=== PATIENT | female | born 1965 | race Caucasian/White ===

== ENCOUNTER 2017-05-08 17:02 | Emergency (ER) | payer MEDICAID, OTHER ==
--- NOTE | 2017-05-08 17:12 | CPEKG ---
Heart Rate: 88 RR Interval: 682 P-R Interval: 140 QRSD Interval: 90 QT Interval: 348 QTC Interval: 421 P [place]: 46 QRS [place]: -13 T Wave [place]: 39 EKG Severity - NORMAL ECG - EKG Impression: SINUS RHYTHM Electronically Signed By: Rome Sousa 09-May-2017 19:32:04
[2017-05-08 17:39] LABS: % IMMATURE GRANULYOCYTES 0.9 % (0.0-1.1); ABSOLUTE IMMATURE GRANULOCYTES 0.11 10^3/uL (0.00-0.10); ADD DIFF? NO; ADD MORPH? NO; ADD SCAN? NO; ATYPICAL LYMPHOCYTE FLAG 20 (0-99); FRAGMENT RBC FLAG 0 (0-99); HEMATOCRIT 39.1 % (38.0-47.0); HEMOGLOBIN 12.4 g/dL (12.6-16.3); LEFT SHIFT FLG 0 (0-99); LIPEMIA HEMOLYSIS FLAG 80 (0-99); MEAN CELL HEMOGLOBIN 25.3 pg (27.9-34.1); MEAN CELL HEMOGLOBIN CONCENTR. 31.7 g/dL (32.4-36.7); MEAN CELL VOLUME 79.6 fL (81.5-99.8); MEAN PLATELET VOLUME 8.8 fL (8.7-11.7); PLATELET CLUMPS FLAG 0 (0-99); PLATELET COUNT 459 10^3/uL (150-400); RED BLOOD CELL COUNT 4.91 10^6/uL (4.18-5.33); RED CELL DISTRIBUTION WIDTH 19.4 % (11.5-15.2)
--- NOTE | 2017-05-08 17:46 | EDPHY ---
HPI/HX/ROS/PE/MDM Narrative: CHIEF COMPLAINT: Chest pain. HPI: This patient is a 51 year old female complaining of stabbing chest pain onset around 2:00, three and a half hours ago. The pain feels stabbing on the left side below her ribs, radiating around to her back. She feels as if the left side of her chest is being crushed. She does not have increased pain with inspiration, but states is is difficult to catch her breath. She denies any recent trauma, and has never had pain like this before. She has history of two prior DVTs, but it not currently anticoagulated. She has significant family cardiac history, as her mother of a heart attack at age 45. REVIEW OF SYSTEMS: Aside from elements discussed in the HPI, a comprehensive 10-point review of systems was reviewed and is negative. 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 Gastric bypass. SOCIAL HISTORY: Daughter at bedside. Lives in [place]. . PHYSICAL EXAM: General:Patient is alert, in no acute distress. ENT:Eyes are normal to inspection. ENT inspection normal. Neck: Normal inspection. Full range of motion. Respiratory:No respiratory distress. Breath sounds normal bilaterally. Cardiovascular: Regular rate and rhythm. Strong peripheral pulses. Normal cap refill. Abdomen:The abdomen is nontender to palpation. There are no peritoneal signs. There are normal bowel sounds. Back: Normal to inspection. No tenderness to palpation. Skin: Normal color. No rash. Warm and dry. Extremities: Normal appearance. Full range of motion. Neuro: Oriented x3. Normal motor function. Normal sensory function. Portions of this note were transcribed by an ED scribe. I personally performed the history, physical exam, and medical decision making; and confirm the accuracy of the information in the transcribed note. ED Course: 51 year old female presents with stabbing chest pains. Plan for labs including CBC, BMP, Troponin, and D-Dimer. Plan for CTA. The 12 lead EKG was interpreted by myself. See hard copy and/or "tracemaster" electronic copy for interpretation. 18:[address] Trotter, radiologist. CTA negative for PE. Plan to discharge home in good condition. Follow up and return precautions discussed. The patient is comfortable with this plan. MDM: This patient presents with left-sided pleuritic chest pain in the setting of previous DVT and family history of PE. The patient's troponin and ECG are normal, as is her d-dimer. I explained this to her but she is adamant that something is wrong and very concerned about PE despite d-dimer being negative, so we agreed to perform a CTA, which is thankfully negative. The patient asked for narcotic pain medication but review of her chart shows history of extensive substance abuse so this was declined, especially since no clear etiology of pain is identified. I see no signs of PE, PTx, PNA, TAD or ACS. - Data Points Imaging Results: Imaging Impressions Chest/Thorax CTA 05/08/17 17:46 Impression: 1. No evidence of thrombopulmonary embolic disease. 2. Mild airways disease and minimal posterior dependent atelectasis. 3. No acute process. Findings discussed with Emergency Department physician, Jose He MD at 05/08/2017 18:57. Laboratory Results: Laboratory Results 05/08/17 17:31 05/08/17 17:31 05/08/17 05/08/17 05/08/17 17:31 17:31 17:31 WBC 11.98 10^3/uL H 10^3/uL (3.80-9.50) RBC 4.91 10^6/uL 10^6/uL (4.18-5.33) Hgb 12.4 g/dL L g/dL (12.6-16.3) Hct 39.1 % % (38.0-47.0) MCV 79.6 fL L fL (81.5-99.8) MCH 25.3 pg L pg (27.9-34.1) MCHC 31.7 g/dL L g/dL (32.4-36.7) RDW 19.4 % H % (11.5-15.2) Plt Count 459 10^3/uL H 10^3/uL (150-400) MPV 8.8 fL fL (8.7-11.7) Neut % (Auto) 62.9 % % (39.3-74.2) Lymph % (Auto) 28.1 % % (15.0-45.0) [place] % (Auto) 5.8 % % (4.5-13.0) Eos % (Auto) 1.8 % % (0.6-7.6) Baso % (Auto) 0.5 % % (0.3-1.7) Nucleat RBC Rel Count 0.0 % % (0.0-0.2) Absolute Neuts (auto) 7.52 10^3/uL H 10^3/uL (1.70-6.50) Absolute Lymphs (auto) 3.37 10^3/uL H 10^3/uL (1.00-3.00) Absolute Monos (auto) 0.70 10^3/uL 10^3/uL (0.30-0.80) Absolute Eos (auto) 0.22 10^3/uL 10^3/uL (0.03-0.40) Absolute Basos (auto) 0.06 10^3/uL 10^3/uL (0.02-0.10) Absolute Nucleated RBC 0.00 10^3/uL 10^3/uL (0-0.01) Immature Gran % 0.9 % % (0.0-1.1) Immature Gran # 0.11 10^3/uL H 10^3/uL (0.00-0.10) D-Dimer < 0.27 ug/mLFEU ug/mLFEU (0.00-0.50) Sodium 135 mEq/L mEq/L (134-144) Potassium 4.5 mEq/L mEq/L (3.5-5.2) Chloride 104 mEq/L mEq/L (97-110) Carbon Dioxide 19 mEq/l L mEq/l (22-31) Anion Gap 12 mEq/L mEq/L (8-16) BUN 7 mg/dL mg/dL (7-23) Creatinine 1.0 mg/dL mg/dL (0.6-1.0) Estimated GFR 59 Glucose 83 mg/dL mg/dL (70-100) Calcium 8.9 mg/dL mg/dL (8.5-10.4) Troponin I < 0.012 ng/mL ng/mL (0-0.034) Medications Given: Discontinued Medications Hydromorphone HCl (Dilaudid) 0.5 mg IVP EDNOW ONE Stop: 05/08/17 17:49 Last Admin: 05/08/17 18:02 Dose: 0.5 mg General Time Seen by Provider: 05/08/17 17:22 Initial Vital Signs: Initial Vital Signs Temperature (C) 36.7 C 05/08/17 17:05 Heart Rate 107 H 05/08/17 17:05 Respiratory Rate 20 05/08/17 17:05 Blood Pressure 111/87 H 05/08/17 17:05 O2 Sat (%) 95 05/08/17 17:05 O2 Delivery Mode Room Air Allergies/Adverse Reactions: codeine [Codeine] Allergy (Mild, Verified 08/14/16 22:02) Abdominal Cramping lorazepam [From Ativan] Allergy (Mild, Verified 08/14/16 22:02) metoclopramide HCl [From Reglan] Allergy (Mild, Verified 08/14/16 22:02) morphine [Morphine] Allergy (Mild, Verified 08/14/16 22:02) Abdominal Cramping ondansetron HCl [From Zofran] Allergy (Mild, Verified 08/14/16 22:02) Hives sumatriptan [From Imitrex] Allergy (Mild, Verified 08/14/16 22:02) sumatriptan succinate [From Imitrex] Allergy (Mild, Verified 08/14/16 22:02) zolmitriptan [From Zomig] Allergy (Mild, Verified 08/14/16 22:02) zolpidem tartrate [From Ambien] Allergy (Mild, Verified 08/14/16 22:02) Home Medications: Medication Instructions Recorded Acetaminophen [Tylenol ES 500 mg 1,000 mg PO TID 08/21/16 (*)] Cholecalciferol Vit D3 [Vitamin D3 2,000 units PO DAILY 08/21/16 2000 units tab (OTC)] Cyanocobalamin [Vitamin B12 1,000 mcg IM Q30D 08/21/16 1000MCG/ML (*)] Ferrous Sulfate [Ferrous Sulf 325 325 mg PO DAILY 08/21/16 MG (*)] Gabapentin [Neurontin 300 MG (*)] 900 mg PO TID 08/21/16 Herbals/Supplements -Info Only 1 ea PO DAILY 08/21/16 Methenamine Nabil [Hiprex 1 gm (*)] 0.5 gm PO BID 08/21/16 risperiDONE [Risperdal] 2 mg PO HS 08/21/16 traMADol [Ultram 50 mg (*)] 50 mg PO TID 08/21/16 traZODone [traZODONE 100MG (*)] 100 mg PO HS 08/21/16 Pantoprazole Sodium [Protonix 40mg 40 mg PO DAILY #0 tab 08/24/16 (*)] Promethazine HCl [Phenergan 25mg 25 mg PO TID #0 tab 08/24/16 (*)] risperiDONE [Risperdal] 2 mg PO HS #0 tab 08/24/16 Departure - Departure Disposition: Home, Routine, Self-Care Clinical Impression: Chest wall pain Condition: Good Instructions: Chest Pain (ED), Chest Wall Pain (ED) Additional Instructions: Follow-up with your primary doctor within 72 hours for symptoms unresolved. Return to the Emergency Department for fever, chest pain, shortness of breath, increasing pain or other worsening of condition. Referrals: Noelle Guerrero MD [Medical Doctor] - As per Instructions Report Scribed for: Jose He Report Scribed by: Nilda Cardoza Date of Report: 05/08/17 Time of Report: 21:53
[2017-05-08] MEDS ORDERED: HYDROmorphONE/DILAUDID 1 MG/ML SYR IVP ONE (17:48)
[2017-05-08 17:54] LABS: ANION GAP 12 mEq/L (8-16); CALCIUM 8.9 mg/dL (8.5-10.4); CARBON DIOXIDE 19 mEq/l (22-31); CHLORIDE 104 mEq/L (97-110); GLOMERULAR FILTRATION RATE 59; GLUCOSE 83 mg/dL (70-100); POTASSIUM 4.5 mEq/L (3.5-5.2); SODIUM 135 mEq/L (134-144)
[2017-05-08 18:25] LABS: TROPONIN I < 0.012 ng/mL (0-0.034)
[2017-05-08] MEDS ORDERED: IOPAMIDOL (ISOVUE 370) 100 ML BTL IV ONE (18:30)
[2017-05-08 19:14] VITALS: BP 137/84; PULSE 88; RESP 18; TEMP 98.4; O2SAT 93
== END 2017-05-08 19:14 | disposition home or self-care (01) ==
DX: R07.89 Other chest pain (principal)
CPT/HCPCS: 96374; J1170; Q9967

== ENCOUNTER 2017-05-09 15:31 | Emergency (ER) | payer MEDICAID ==
[2017-05-09 15:37] VITALS: RESP 16; O2SAT 96
--- NOTE | 2017-05-09 15:50 | CPEKG ---
Heart Rate: 93 RR Interval: 645 P-R Interval: 132 QRSD Interval: 88 QT Interval: 324 QTC Interval: 403 P [place]: 40 QRS [place]: -1 T Wave [place]: 38 EKG Severity - NORMAL ECG - EKG Impression: SINUS RHYTHM Electronically Signed By: Rome Sousa 09-May-2017 19:31:39
--- NOTE | 2017-05-09 16:05 | EDPHY ---
H & P Time Seen by Provider: 05/09/17 16:01 HPI/ROS: Chief complaint. Chest pain HPI. 51-year-old female presents emergency department with left-sided chest pain that began yesterday afternoon around 2. She describes as crushing and stabbing. It is not worse with breathing, exertion, position, eating. No fever cough. Some tenderness in the upper abdomen. She has chronic nausea that is unchanged. No vomiting or diarrhea. She was seen last evening in the emergency department for the same and had a EKG, CTA for PE and normal workup. ROS Constitutional. no fever/chills, no weakness Eyes. no problems with vision ENT. no sore throat, no nasal drainage Cardiovascular. Chest pain Respiratory. no shortness of breath, no cough Abdominal. Chronic nausea . no problems urinating MS. no calf pain/swelling, no neck/back pain, no joint pain Skin. no rash Lymph. no swollen glands Neuro. no headache, no dizziness, no difficulty walking or with speech Past Medical/Surgical History: Past history hysterectomy, cholecystectomy, Crohn's disease, multiple abdominal surgeries, gastric bypass, neuropathy, appendectomy, and this dissection, migraines, left foot operation Social History: , daily smoker, no alcohol Smoking Status: Current every day smoker Physical Exam: General Appearance: Alert well-developed distress vital signs stable. Initial heart rate 104 Eyes: Pupils equal and round no pallor or injection. ENT, Mouth: Mucous membranes are moist. Respiratory: There are no retractions, lungs are clear to auscultation. Cardiovascular: Regular rate and rhythm. Gastrointestinal: Abdomen is soft and nontender, no masses, bowel sounds normal. Neurological: Awake and alert, sensory and motor exams grossly normal. Skin: Warm and dry, no rashes. Musculoskeletal: Neck is supple nontender. Extremities symmetrical, full range of motion. Psychiatric: Patient is oriented X 3, there is no agitation. Constitutional: Initial Vital Signs Temperature (C) 36.8 C 05/09/17 15:35 Heart Rate 104 H 05/09/17 15:35 Respiratory Rate 16 05/09/17 15:35 Blood Pressure 119/82 H 05/09/17 15:35 O2 Sat (%) 96 05/09/17 15:35 O2 Delivery Mode Room Air Allergies/Adverse Reactions: codeine [Codeine] Allergy (Mild, Verified 08/14/16 22:02) Abdominal Cramping lorazepam [From Ativan] Allergy (Mild, Verified 08/14/16 22:02) metoclopramide HCl [From Reglan] Allergy (Mild, Verified 08/14/16 22:02) morphine [Morphine] Allergy (Mild, Verified 08/14/16 22:02) Abdominal Cramping ondansetron HCl [From Zofran] Allergy (Mild, Verified 08/14/16 22:02) Hives sumatriptan [From Imitrex] Allergy (Mild, Verified 08/14/16 22:02) sumatriptan succinate [From Imitrex] Allergy (Mild, Verified 08/14/16 22:02) zolmitriptan [From Zomig] Allergy (Mild, Verified 08/14/16 22:02) zolpidem tartrate [From Ambien] Allergy (Mild, Verified 08/14/16 22:02) Home Medications: Medication Instructions Recorded Acetaminophen [Tylenol ES 500 mg 1,000 mg PO TID 08/21/16 (*)] Cholecalciferol Vit D3 [Vitamin D3 2,000 units PO DAILY 08/21/16 2000 units tab (OTC)] Cyanocobalamin [Vitamin B12 1,000 mcg IM Q30D 08/21/16 1000MCG/ML (*)] Ferrous Sulfate [Ferrous Sulf 325 325 mg PO DAILY 08/21/16 MG (*)] Gabapentin [Neurontin 300 MG (*)] 900 mg PO TID 08/21/16 Herbals/Supplements -Info Only 1 ea PO DAILY 08/21/16 Methenamine Nabil [Hiprex 1 gm (*)] 0.5 gm PO BID 08/21/16 risperiDONE [Risperdal] 2 mg PO HS 08/21/16 traMADol [Ultram 50 mg (*)] 50 mg PO TID 08/21/16 traZODone [traZODONE 100MG (*)] 100 mg PO HS 08/21/16 Pantoprazole Sodium [Protonix 40mg 40 mg PO DAILY #0 tab 08/24/16 (*)] Promethazine HCl [Phenergan 25mg 25 mg PO TID #0 tab 08/24/16 (*)] risperiDONE [Risperdal] 2 mg PO HS #0 tab 08/24/16 Hydrocodone/APAP 5/325 [[place] 1 each PO Q4-6PRN PRN #8 tab 05/09/17 5/325 (*)] Medical Decision Making - Diagnostics EKG Interpretation: EKG interpreted by me shows normal sinus rhythm with normal interval. There is left axis deviation. QRS is normal there is no significant ST elevation or depression. No arrhythmia. The rate is 93 Imaging Results: Imaging Impressions Chest X-Ray 05/09/17 16:17 Impression: Stable bronchitis/airways disease. CT from last night of her chest is reviewed by me One-view chest x-ray reviewed by me and interpretation is normal Procedures: IV normal saline. Dilaudid 0.5 mg IV. ED Course/Re-evaluation: Re-evaluation 6:25 p.m.--patient is stable. Patient and I discussed imaging lab EKG findings. We discussed treatment plan including criteria for return importance of follow-up and further evaluation. She expresses understanding and agreement Differential Diagnosis: I have considered pulmonary embolus however the patient had a normal D-dimer as well as normal chest CT last night. I have considered acute coronary syndrome and the patient has a normal EKG and negative troponin after more than 24 hours of discomfort. This could be musculoskeletal - Data Points Laboratory Results: Laboratory Results 05/09/17 17:10 05/09/17 17:10 05/09/17 05/09/17 17:10 17:10 WBC 12.12 10^3/uL H 10^3/uL (3.80-9.50) RBC 4.39 10^6/uL 10^6/uL (4.18-5.33) Hgb 10.9 g/dL L g/dL (12.6-16.3) Hct 34.7 % L % (38.0-47.0) MCV 79.0 fL L fL (81.5-99.8) MCH 24.8 pg L pg (27.9-34.1) MCHC 31.4 g/dL L g/dL (32.4-36.7) RDW 18.9 % H % (11.5-15.2) Plt Count 415 10^3/uL H 10^3/uL (150-400) MPV 9.1 fL fL (8.7-11.7) Neut % (Auto) 58.8 % % (39.3-74.2) Lymph % (Auto) 30.2 % % (15.0-45.0) [place] % (Auto) 6.6 % % (4.5-13.0) Eos % (Auto) 2.8 % % (0.6-7.6) Baso % (Auto) 0.5 % % (0.3-1.7) Nucleat RBC Rel Count 0.0 % % (0.0-0.2) Absolute Neuts (auto) 7.13 10^3/uL H 10^3/uL (1.70-6.50) Absolute Lymphs (auto) 3.66 10^3/uL H 10^3/uL (1.00-3.00) Absolute Monos (auto) 0.80 10^3/uL 10^3/uL (0.30-0.80) Absolute Eos (auto) 0.34 10^3/uL 10^3/uL (0.03-0.40) Absolute Basos (auto) 0.06 10^3/uL 10^3/uL (0.02-0.10) Absolute Nucleated RBC 0.00 10^3/uL 10^3/uL (0-0.01) Immature Gran % 1.1 % % (0.0-1.1) Immature Gran # 0.13 10^3/uL H 10^3/uL (0.00-0.10) Sodium 133 mEq/L L mEq/L (134-144) Potassium 4.3 mEq/L mEq/L (3.5-5.2) Chloride 105 mEq/L mEq/L (97-110) Carbon Dioxide 22 mEq/l mEq/l (22-31) Anion Gap 6 mEq/L L mEq/L (8-16) BUN 3 mg/dL L mg/dL (7-23) Creatinine 0.6 mg/dL mg/dL (0.6-1.0) Estimated GFR > 60 Glucose 77 mg/dL mg/dL (70-100) Calcium 8.3 mg/dL L mg/dL (8.5-10.4) Total Bilirubin 0.4 mg/dL mg/dL (0.1-1.4) Conjugated Bilirubin 0.2 mg/dL mg/dL (0.0-0.5) Unconjugated Bilirubin 0.2 mg/dL mg/dL (0.0-1.1) AST 17 IU/L IU/L (14-46) ALT 20 IU/L IU/L (9-52) Alkaline Phosphatase 104 IU/L IU/L (38-126) Troponin I < 0.012 ng/mL ng/mL (0-0.034) Total Protein 5.9 g/dL L g/dL (6.3-8.2) Albumin 3.0 g/dL L g/dL (3.5-5.0) Lipase 31.0 IU/L IU/L (23-300) Medications Given: Discontinued Medications Sodium Chloride (Ns) 1,000 mls @ 0 mls/hr IV ONCE ONE; Wide Open PRN Reason: Protocol Stop: 05/09/17 16:18 Last Admin: 05/09/17 17:11 Dose: 1,000 mls Departure - Departure Disposition: Home, Routine, Self-Care Clinical Impression: Chest pain Qualifiers: Chest pain type: unspecified Qualified Code(s): R07.9 - Chest pain, unspecified Condition: Good Instructions: Chest Pain (ED) Additional Instructions: Ibuprofen 600 mg every 6 hours. Heat to chest wall. Hydrocodone for discomfort. Return for worsening symptoms. Re-evaluation by your regular physician in the next 2-3 days. Referrals: CLAUDIA MARTINEZ [Primary Care Provider] - 1-2 days without fail Stand Alone Forms: Work Excuse Prescriptions: Hydrocodone/APAP 5/325 [[place] 5/325 (*)] 1 each PO Q4-6PRN PRN #8 tab PRN Reason: Pain, Moderate
[2017-05-09] MEDS ORDERED: NS 1,000 ML IV ONE (16:17)
[2017-05-09] MEDS ORDERED: HYDROmorphONE/DILAUDID 1 MG/ML SYR IVP PRN (16:17)
[2017-05-09 17:29] LABS: % IMMATURE GRANULYOCYTES 1.1 % (0.0-1.1); ABSOLUTE IMMATURE GRANULOCYTES 0.13 10^3/uL (0.00-0.10); ADD DIFF? NO; ADD MORPH? NO; ADD SCAN? NO; ATYPICAL LYMPHOCYTE FLAG 0 (0-99); FRAGMENT RBC FLAG 0 (0-99); HEMATOCRIT 34.7 % (38.0-47.0); HEMOGLOBIN 10.9 g/dL (12.6-16.3); LEFT SHIFT FLG 0 (0-99); LIPEMIA HEMOLYSIS FLAG 80 (0-99); MEAN CELL HEMOGLOBIN 24.8 pg (27.9-34.1); MEAN CELL HEMOGLOBIN CONCENTR. 31.4 g/dL (32.4-36.7); MEAN PLATELET VOLUME 9.1 fL (8.7-11.7); PLATELET CLUMPS FLAG 0 (0-99); PLATELET COUNT 415 10^3/uL (150-400); RED BLOOD CELL COUNT 4.39 10^6/uL (4.18-5.33); RED CELL DISTRIBUTION WIDTH 18.9 % (11.5-15.2)
[2017-05-09 17:33] LABS: ALANINE AMINOTRANSFERASE 20 IU/L (9-52); ALKALINE PHOSPHATASE 104 IU/L (38-126); ANION GAP 6 mEq/L (8-16); ASPARTATE AMINOTRANSFERASE 17 IU/L (14-46); BILIRUBIN,TOTAL 0.4 mg/dL (0.1-1.4); BILIRUBIN-CONJUGATED 0.2 mg/dL (0.0-0.5); BILIRUBIN-UNCONJUGATED 0.2 mg/dL (0.0-1.1); CALCIUM 8.3 mg/dL (8.5-10.4); CARBON DIOXIDE 22 mEq/l (22-31); CHLORIDE 105 mEq/L (97-110); CREATININE 0.6 mg/dL (0.6-1.0); GLOMERULAR FILTRATION RATE > 60; GLUCOSE 77 mg/dL (70-100); POTASSIUM 4.3 mEq/L (3.5-5.2); SODIUM 133 mEq/L (134-144); TOTAL PROTEIN 5.9 g/dL (6.3-8.2)
[2017-05-09 17:44] LABS: TROPONIN I < 0.012 ng/mL (0-0.034)
[2017-05-09 19:17] VITALS: BP 110/76; PULSE 82; TEMP 99
== END 2017-05-09 18:45 | disposition home or self-care (01) ==
DX: R07.9 Chest pain, unspecified (principal); F17.200 Nicotine dependence, unspecified, uncomplicated; E86.9 Volume depletion, unspecified
CPT/HCPCS: 96374; J1170

== ENCOUNTER 2017-05-14 19:12 | Inpatient (IN) | payer MEDICAID ==
--- NOTE | 2017-05-14 19:33 | EDPHY ---
H & P Stated Complaint: CP Time Seen by Provider: 05/14/17 19:31 - Personal History LMP (Females 10-55): Hysterectomy Current Tetanus/Diphtheria Vaccine: Yes Current Tetanus Diphtheria and Acellular Pertussis (TDAP): Yes Tetanus Vaccine Date: 2011 - Medical/Surgical History Hx Asthma: No Hx Chronic Respiratory Disease: No Hx Diabetes: No Hx Cardiac Disease: No Hx Renal Disease: No Hx Cirrhosis: No Hx Alcoholism: No Hx HIV/AIDS: No Hx Splenectomy or Spleen Trauma: No Other PMH: hysterectomy, cholecystectomy, chrohns disease, multiple abd surgeries, gastric bypass, neuropathy, right foot drop. appendectomy, intussuception, migraines, L foot operation, Tonsillectomy, bipolar, depression , bowel obstruction - Social History Smoking Status: Current every day smoker Constitutional: Initial Vital Signs Temperature (C) 36.8 C 05/14/17 19:15 Heart Rate 112 H 05/14/17 19:15 Respiratory Rate 24 H 05/14/17 19:15 Blood Pressure 128/73 H 05/14/17 19:15 O2 Sat (%) 96 05/14/17 19:15 O2 Delivery Mode Room Air Allergies/Adverse Reactions: codeine [Codeine] Allergy (Mild, Verified 05/14/17 19:14) Abdominal Cramping lorazepam [From Ativan] Allergy (Mild, Verified 05/14/17 19:14) metoclopramide HCl [From Reglan] Allergy (Mild, Verified 05/14/17 19:14) morphine [Morphine] Allergy (Mild, Verified 05/14/17 19:14) Abdominal Cramping ondansetron HCl [From Zofran] Allergy (Mild, Verified 05/14/17 19:14) Hives sumatriptan [From Imitrex] Allergy (Mild, Verified 05/14/17 19:14) sumatriptan succinate [From Imitrex] Allergy (Mild, Verified 05/14/17 19:14) zolmitriptan [From Zomig] Allergy (Mild, Verified 05/14/17 19:14) zolpidem tartrate [From Ambien] Allergy (Mild, Verified 05/14/17 19:14) Home Medications: Medication Instructions Recorded Acetaminophen [Tylenol ES 500 mg 1,000 mg PO TID 08/21/16 (*)] Cholecalciferol Vit D3 [Vitamin D3 2,000 units PO DAILY 08/21/16 2000 units tab (OTC)] Cyanocobalamin [Vitamin B12 1,000 mcg IM Q30D 08/21/16 1000MCG/ML (*)] Ferrous Sulfate [Ferrous Sulf 325 325 mg PO DAILY 08/21/16 MG (*)] Gabapentin [Neurontin 300 MG (*)] 900 mg PO TID 08/21/16 Herbals/Supplements -Info Only 1 ea PO DAILY 08/21/16 Methenamine Nabil [Hiprex 1 gm (*)] 0.5 gm PO BID 08/21/16 risperiDONE [Risperdal] 2 mg PO HS 08/21/16 traMADol [Ultram 50 mg (*)] 50 mg PO TID 08/21/16 traZODone [traZODONE 100MG (*)] 100 mg PO HS 08/21/16 Pantoprazole Sodium [Protonix 40mg 40 mg PO DAILY #0 tab 08/24/16 (*)] Promethazine HCl [Phenergan 25mg 25 mg PO TID #0 tab 08/24/16 (*)] risperiDONE [Risperdal] 2 mg PO HS #0 tab 08/24/16 Hydrocodone/APAP 5/325 [[place] 1 each PO Q4-6PRN PRN #8 tab 05/09/17 5/325 (*)] Dilaudid 05/14/17 Medical Decision Making - Diagnostics Imaging: Discussed imaging studies w/ financial services technician Radiologist, I viewed and interpreted images myself ED Course/Re-evaluation: CHIEF COMPLAINT: Abdominal and chest pain HISTORY OF PRESENT ILLNESS: The patient is a 51 y/o female returning for the 3rd time this week complaining of recurrent chest and abdominal pain. She had extensive cardiac work up for these symptoms including EKG, labs, and chest CTA. Her pain is located below her sternum along her epigastrium, in her left midaxillary region, and radiates to her back. It oscillates between "dull and tolerable" to feeling "like a hot dagger going through me." She feels like she can't catch her breath and states the pain does not change with position. She has been able to drink fluids, but has difficulty eating due to pain. She has been taking oral Dilaudid for pain, which is prescribed by her pain clinic doctor. REVIEW OF SYSTEMS: A 10 point review of systems was performed and is negative with the exception of the elements mentioned in the history of present illness. PHYSICAL EXAM: HR, BP, O2 Sat, RR. Temp noted General Appearance: Alert, well hydrated, appropriate, and non-toxic appearing. Head: Atraumatic without scalp tenderness or obvious injury Eyes: Pupils equal, round, reactive to light and accommodation, EOMI, no trauma , no injection. Nose: Atraumatic, no rhinorrhea, clear. Throat: Mucus membranes moist. Neck: Supple, nontender, no lymphadenopathy. Respiratory: No retractions, no distress, no wheezes, and no accessory muscle use. Lungs are clear to auscultation bilaterally. Cardiovascular: Regular rate and rhythm, no murmurs, rubs, or gallops. Good capillary refill all extremities. Gastrointestinal: Abdomen is soft, epigastric tenderness, non-distended, no masses, no rebound, no guarding, no peritoneal signs. Musculoskeletal: Normal active ROM of all extremities, atraumatic. Neurological: Alert, appropriate, and interactive. Nonfocal neuro exam. Skin: No rashes, good turgor, no nodules on palpation. Past medical history: Crohn's disease, migraines, depression Past surgical history: Gastric bypass in 2002, multiple abdominal surgeries, hysterectomy, cholecystectomy Family history: noncontributory Social history: [facility]: [facility] DIAGNOSTICS/PROCEDURES/CRITICAL CARE TIME: The 12 lead EKG was interpreted by myself. Sinus mechanism. Slightly tachycardic. Same as previous EKG this week. See hard copy and/or "tracemaster" electronic copy for interpretation. Abdominal CT: negative for acute process DIFFERENTIAL DIAGNOSIS: The differential diagnosis for the patient's abdominal pain included but was not limited to complication from gastric surgery , ovarian cyst, pelvic inflammatory disease, ovarian torsion, urinary tract infection, ectopic , cholecystitis, and appendicitis. MEDICAL DECISION MAKING: This is a 51 y/o female who presents with recurrent chest and epigastric abdominal pain. She has epigastric tenderness on exam and is mildly tachycardic. As her chest pain has been thoroughly worked up, plan to complete abdominal pain work up with IV, labs, UA, and abdominal CT. WBC is elevated. CT shows nothing acute. I discussed these findings with the patient and offered admission, which she agreed to. 2110: Spoke with hospitalist service. Dr. Hampton accepts admission. - Data Points Laboratory Results: Laboratory Results 05/14/17 19:41 05/14/17 19:41 05/14/17 05/14/17 19:41 19:41 WBC 12.87 10^3/uL H 10^3/uL (3.80-9.50) RBC 4.67 10^6/uL 10^6/uL (4.18-5.33) Hgb 11.7 g/dL L g/dL (12.6-16.3) Hct 37.1 % L % (38.0-47.0) MCV 79.4 fL L fL (81.5-99.8) MCH 25.1 pg L pg (27.9-34.1) MCHC 31.5 g/dL L g/dL (32.4-36.7) RDW 18.6 % H % (11.5-15.2) Plt Count 429 10^3/uL H 10^3/uL (150-400) MPV 9.2 fL fL (8.7-11.7) Neut % (Auto) 66.1 % % (39.3-74.2) Lymph % (Auto) 24.2 % % (15.0-45.0) [place] % (Auto) 5.7 % % (4.5-13.0) Eos % (Auto) 2.3 % % (0.6-7.6) Baso % (Auto) 0.5 % % (0.3-1.7) Nucleat RBC Rel Count 0.0 % % (0.0-0.2) Absolute Neuts (auto) 8.51 10^3/uL H 10^3/uL (1.70-6.50) Absolute Lymphs (auto) 3.12 10^3/uL H 10^3/uL (1.00-3.00) Absolute Monos (auto) 0.74 10^3/uL 10^3/uL (0.30-0.80) Absolute Eos (auto) 0.29 10^3/uL 10^3/uL (0.03-0.40) Absolute Basos (auto) 0.06 10^3/uL 10^3/uL (0.02-0.10) Absolute Nucleated RBC 0.00 10^3/uL 10^3/uL (0-0.01) Immature Gran % 1.2 % H % (0.0-1.1) Immature Gran # 0.15 10^3/uL H 10^3/uL (0.00-0.10) Sodium 133 mEq/L L mEq/L (134-144) Potassium 3.9 mEq/L mEq/L (3.5-5.2) Chloride 105 mEq/L mEq/L (97-110) Carbon Dioxide 19 mEq/l L mEq/l (22-31) Anion Gap 9 mEq/L mEq/L (8-16) BUN 7 mg/dL mg/dL (7-23) Creatinine 0.8 mg/dL mg/dL (0.6-1.0) Estimated GFR > 60 Glucose 104 mg/dL H mg/dL (70-100) Calcium 8.7 mg/dL mg/dL (8.5-10.4) Total Bilirubin 0.3 mg/dL mg/dL (0.1-1.4) Conjugated Bilirubin 0.3 mg/dL mg/dL (0.0-0.5) Unconjugated Bilirubin 0.0 mg/dL mg/dL (0.0-1.1) AST 14 IU/L IU/L (14-46) ALT 20 IU/L IU/L (9-52) Alkaline Phosphatase 135 IU/L H IU/L (38-126) Total Protein 5.9 g/dL L g/dL (6.3-8.2) Albumin 3.4 g/dL L g/dL (3.5-5.0) Lipase 122.0 IU/L IU/L (23-300) Medications Given: Discontinued Medications Hydromorphone HCl (Dilaudid) 1 mg IVP EDNOW ONE Stop: 05/14/17 19:47 Last Admin: 05/14/17 19:53 Dose: 1 mg Sodium Chloride (Ns) 1,000 mls @ 0 mls/hr IV EDNOW ONE; Wide Open PRN Reason: Protocol Stop: 05/14/17 19:47 Last Admin: 05/14/17 19:52 Dose: 1,000 mls Ketorolac Tromethamine (Toradol) 30 mg IVP EDNOW ONE Stop: 05/14/17 19:47 Last Admin: 05/14/17 19:53 Dose: 30 mg Departure - Departure Disposition: [facility] Inpatient Acute Clinical Impression: Abdominal pain Qualifiers: Abdominal location: epigastric Qualified Code(s): R10.13 - Epigastric pain Leukocytosis Qualifiers: Leukocytosis type: other Qualified Code(s): D72.828 - Other elevated white blood cell count Chest pain Qualifiers: Chest pain type: other chest pain Qualified Code(s): R07.89 - Other chest pain ; R07.8 - Other chest pain Condition: Fair Instructions: Abdominal Pain (ED) Referrals: NONE *PRIMARY CARE P,. [Primary Care Provider] - As per Instructions [facility],. [Clinic] - As per Instructions Report Scribed for: Hammad Arellano Report Scribed by: Brigitte Pfeiffer Date of Report: 05/14/17 Time of Report: 19:39
--- NOTE | 2017-05-14 19:34 | CPEKG ---
Heart Rate: 105 RR Interval: 571 P-R Interval: 132 QRSD Interval: 84 QT Interval: 336 QTC Interval: 445 P [place]: 43 QRS [place]: -6 T Wave [place]: 39 EKG Severity - OTHERWISE NORMAL ECG - EKG Impression: SINUS TACHYCARDIA Electronically Signed By: Hammad Arellano 14-May-2017 21:15:39
[2017-05-14] MEDS ORDERED: KETOROLAC 30 MG/1 ML SDV IVP ONE (19:46)
[2017-05-14] MEDS ORDERED: NS 1,000 ML IV ONE (19:46)
[2017-05-14] MEDS ORDERED: HYDROmorphONE/DILAUDID 1 MG/ML SYR IVP ONE ×3 (19:46→21:10)
[2017-05-14 19:53] LABS: % IMMATURE GRANULYOCYTES 1.2 % (0.0-1.1); ABSOLUTE IMMATURE GRANULOCYTES 0.15 10^3/uL (0.00-0.10); ADD DIFF? NO; ADD MORPH? NO; ADD SCAN? NO; ATYPICAL LYMPHOCYTE FLAG 10 (0-99); FRAGMENT RBC FLAG 0 (0-99); HEMATOCRIT 37.1 % (38.0-47.0); HEMOGLOBIN 11.7 g/dL (12.6-16.3); LEFT SHIFT FLG 10 (0-99); LIPEMIA HEMOLYSIS FLAG 80 (0-99); MEAN CELL HEMOGLOBIN 25.1 pg (27.9-34.1); MEAN CELL HEMOGLOBIN CONCENTR. 31.5 g/dL (32.4-36.7); MEAN CELL VOLUME 79.4 fL (81.5-99.8); MEAN PLATELET VOLUME 9.2 fL (8.7-11.7); PLATELET CLUMPS FLAG 20 (0-99); PLATELET COUNT 429 10^3/uL (150-400); RED BLOOD CELL COUNT 4.67 10^6/uL (4.18-5.33); RED CELL DISTRIBUTION WIDTH 18.6 % (11.5-15.2)
[2017-05-14 20:02] LABS: ALANINE AMINOTRANSFERASE 20 IU/L (9-52); ALBUMIN 3.4 g/dL (3.5-5.0); ALKALINE PHOSPHATASE 135 IU/L (38-126); ANION GAP 9 mEq/L (8-16); ASPARTATE AMINOTRANSFERASE 14 IU/L (14-46); BILIRUBIN,TOTAL 0.3 mg/dL (0.1-1.4); BILIRUBIN-CONJUGATED 0.3 mg/dL (0.0-0.5); CALCIUM 8.7 mg/dL (8.5-10.4); CARBON DIOXIDE 19 mEq/l (22-31); CHLORIDE 105 mEq/L (97-110); CREATININE 0.8 mg/dL (0.6-1.0); GLOMERULAR FILTRATION RATE > 60; GLUCOSE 104 mg/dL (70-100); POTASSIUM 3.9 mEq/L (3.5-5.2); SODIUM 133 mEq/L (134-144); TOTAL PROTEIN 5.9 g/dL (6.3-8.2)
[2017-05-14] MEDS ORDERED: IOPAMIDOL (ISOVUE-300) 100 ML BTL ONE (20:19)
[2017-05-14] MEDS ORDERED: PROMETHAZINE HCL 25 MG/ML INJ ONE (21:13)
[2017-05-14] MEDS ORDERED: PROMETHAZINE HCL 25 MG/ML INJ IVP ONE (21:14)
[2017-05-14] MEDS ORDERED: PROMETHAZINE HCL 25 MG/ML INJ IVP PRN (23:08)
[2017-05-14] MEDS ORDERED: ONDANSETRON DISINTEGRATING 4 MG TAB PO PRN (23:08)
[2017-05-14] MEDS ORDERED: ONDANSETRON 4 MG/2 ML VIAL IVP PRN (23:08)
[2017-05-14] MEDS ORDERED: HYDROmorphONE/DILAUDID 1 MG/ML SYR IVP PRN (23:08)
[2017-05-14] MEDS ORDERED: HYDROmorphONE/DILAUDID 4 MG TAB PO ONE (23:45)
[2017-05-14] MEDS: GABAPENTIN 300 MG CAP PO PRN (23:49)
[2017-05-14] MEDS: HYDROmorphONE/DILAUDID 4 MG TAB PO SCH (23:49)
[2017-05-14] MEDS: PROMETHAZINE HCL 25 MG TAB PO PRN (23:50)
[2017-05-14] MEDS: MELATONIN 3 MG TAB PO PRN (23:50)
[2017-05-15] MEDS: NS 1,000 ML IV SCH ×2 (01:09→16:15)
--- NOTE | 2017-05-15 02:41 | PDGENHP ---
History and Physical - Chief Complaint abdominal/chest pain - History of Present Illness 51 yo F with PMH of Crohn's disease and "30 abdominal surgeries in the past 14 years", presenting to the ER for the 3rd time in a week with complaints of left upper quadrant/left lower chest pain. She notes that pain is burning/stabbing in nature with radiation to her back. She does not note any positional or pleuritic component to the pain. She does note that stress has made the pain worse, such as an argument she was having with her daughter. This is not the same as her usual chronic pain in that the location is different. She has been eating without issues and had 2 sandwiches this evening in the hospital. She has chronic nausea that is unchanged. She has had chills and cold sweats along with these symptoms. She has not had any sob, dizzyness, near syncope, pain or swelling in her legs. On one of her prior ER visits this week she had a CTA negative for PE. She has been taking her usual home medications of dilaudid for this pain and it has not been able to control her symptoms. History Information - Allergies/Home Medication List Allergies/Adverse Reactions: codeine [Codeine] Allergy (Mild, Verified 05/14/17 19:14) Abdominal Cramping lorazepam [From Ativan] Allergy (Mild, Verified 05/14/17 19:14) metoclopramide HCl [From Reglan] Allergy (Mild, Verified 05/14/17 19:14) morphine [Morphine] Allergy (Mild, Verified 05/14/17 19:14) Abdominal Cramping ondansetron HCl [From Zofran] Allergy (Mild, Verified 05/14/17 19:14) Hives sumatriptan [From Imitrex] Allergy (Mild, Verified 05/14/17 19:14) sumatriptan succinate [From Imitrex] Allergy (Mild, Verified 05/14/17 19:14) zolmitriptan [From Zomig] Allergy (Mild, Verified 05/14/17 19:14) zolpidem tartrate [From Ambien] Allergy (Mild, Verified 05/14/17 19:14) Home Medications: Cholecalciferol Vit D3 [Vitamin D3 2000 units tab (OTC)] 2,000 units PO DAILY [Last Taken 08/20/16] Cyanocobalamin [Vitamin B12 1000MCG/ML (*)] 1,000 mcg IM Q30D 08/21/16 [Last Taken 04/14/17] Gabapentin 300 mg PO .UP TO 8X DAILY PRN 05/14/17 [Last Taken Unknown] HYDROmorphone HCL [Dilaudid] 1 tab PO QID 05/14/17 [Last Taken 05/14/17 16:00] Melatonin [Melatonin 3 MG (*)] 9 mg PO HS PRN 05/14/17 [Last Taken Unknown] Promethazine HCl [Phenergan 25mg (*)] 25 mg PO .5-6 X DAILY PRN 05/14/17 [Last Taken 05/14/17 16:00] risperiDONE [Risperdal] 3 mg PO HS 05/14/17 [Last Taken 05/14/17 17:00] I have personally reviewed and updated: family history, medical history, social history, surgical history - Past Medical History DVT Additional medical history: Crohn's disease, bipolar disorder, depression, peripheral neuropathy with right foot drop, history of DVT. chronic pain with continuous narcotic use and dependency. migraines - Surgical History Additional surgical history: gastric bypass 2002. hysterectomy. multiple episodes of small-bowel obstruction and ex laps, reports at least 40 abdominal surgeries in her lifetime. rectal prolapse repair x 2. internal hernia repair. cholecystectomy. bowel perforation and repair with ileostomy and takedown. appy. tonsillectomy. intussuception surgery - Family History Positive for: mother with history of CAD younger than 65 (Mother of [place] at 45, had hx of multiple blood clots prior to that) - Social History Smoking Status: Current every day smoker Alcohol Use: None Drug Use: None, Other (reports of concerning narcotic seeking behavior in past) Additional social history: recent incarceration. daughter Review of Systems ROS: 10pt was reviewed & negative except for what was stated in HPI & below Physical Exam Temp Pulse Resp BP Pulse Ox 36.7 C 75 17 104/70 96 05/14/17 22:10 05/14/17 22:10 05/14/17 22:10 05/14/17 22:10 05/14/17 22:10 Constitutional: no apparent distress, appears nourished Eyes: PERRL, anicteric sclera Ears, Nose, Mouth, Throat: moist mucous membranes, hearing normal Cardiovascular: regular rate and rhythym, no murmur, rub, or gallop, No edema Respiratory: no respiratory distress, no rales or rhonchi, clear to auscultation Gastrointestinal: normoactive bowel sounds, soft, non-tender abdomen, No tenderness, No guarding, No rebound, No distension Genitourinary: no bladder tenderness Skin: warm, normal color Musculoskeletal: full muscle strength, no muscle tenderness Neurologic: AAOx3 Psychiatric: interacting appropriately, not anxious, not encephalopathic Lab Data & Imaging Review 05/14/17 19:41 05/14/17 19:41 WBC 12.87 10^3/uL (3.80-9.50) H 05/14/17 19:41 RBC 4.67 10^6/uL (4.18-5.33) 05/14/17 19:41 Hgb 11.7 g/dL (12.6-16.3) L 05/14/17 19:41 Hct 37.1 % (38.0-47.0) L 05/14/17 19:41 MCV 79.4 fL (81.5-99.8) L 05/14/17 19:41 MCH 25.1 pg (27.9-34.1) L 05/14/17 19:41 MCHC 31.5 g/dL (32.4-36.7) L 05/14/17 19:41 RDW 18.6 % (11.5-15.2) H 05/14/17 19:41 Plt Count 429 10^3/uL (150-400) H 05/14/17 19:41 MPV 9.2 fL (8.7-11.7) 05/14/17 19:41 Neut % (Auto) 66.1 % (39.3-74.2) 05/14/17 19:41 Lymph % (Auto) 24.2 % (15.0-45.0) 05/14/17 19:41 [place] % (Auto) 5.7 % (4.5-13.0) 05/14/17 19:41 Eos % (Auto) 2.3 % (0.6-7.6) 05/14/17 19:41 Baso % (Auto) 0.5 % (0.3-1.7) 05/14/17 19:41 Nucleat RBC Rel Count 0.0 % (0.0-0.2) 05/14/17 19:41 Absolute Neuts (auto) 8.51 10^3/uL (1.70-6.50) H 05/14/17 19:41 Absolute Lymphs (auto) 3.12 10^3/uL (1.00-3.00) H 05/14/17 19:41 Absolute Monos (auto) 0.74 10^3/uL (0.30-0.80) 05/14/17 19:41 Absolute Eos (auto) 0.29 10^3/uL (0.03-0.40) 05/14/17 19:41 Absolute Basos (auto) 0.06 10^3/uL (0.02-0.10) 05/14/17 19:41 Absolute Nucleated RBC 0.00 10^3/uL (0-0.01) 05/14/17 19:41 Immature Gran % 1.2 % (0.0-1.1) H 05/14/17 19:41 Immature Gran # 0.15 10^3/uL (0.00-0.10) H 05/14/17 19:41 Sodium 133 mEq/L (134-144) L 05/14/17 19:41 Potassium 3.9 mEq/L (3.5-5.2) 05/14/17 19:41 Chloride 105 mEq/L (97-110) 05/14/17 19:41 Carbon Dioxide 19 mEq/l (22-31) L 05/14/17 19:41 Anion Gap 9 mEq/L (8-16) 05/14/17 19:41 BUN 7 mg/dL (7-23) 05/14/17 19:41 Creatinine 0.8 mg/dL (0.6-1.0) 05/14/17 19:41 Estimated GFR > 60 05/14/17 19:41 Glucose 104 mg/dL (70-100) H 05/14/17 19:41 Calcium 8.7 mg/dL (8.5-10.4) 05/14/17 19:41 Total Bilirubin 0.3 mg/dL (0.1-1.4) 05/14/17 19:41 Conjugated Bilirubin 0.3 mg/dL (0.0-0.5) 05/14/17 19:41 Unconjugated Bilirubin 0.0 mg/dL (0.0-1.1) 05/14/17 19:41 AST 14 IU/L (14-46) 05/14/17 19:41 ALT 20 IU/L (9-52) 05/14/17 19:41 Alkaline Phosphatase 135 IU/L (38-126) H 05/14/17 19:41 Troponin I < 0.012 ng/mL (0-0.034) 05/14/17 19:41 Total Protein 5.9 g/dL (6.3-8.2) L 05/14/17 19:41 Albumin 3.4 g/dL (3.5-5.0) L 05/14/17 19:41 Lipase 122.0 IU/L (23-300) 05/14/17 19:41 Visualized and Interpreted imaging results: Yes Interpretation: abd CT: no acute findings. recent chest CTA: no PE Visualized and Interpreted EKG results: Yes EKG Interpretation: Positive for: normal sinsus rhythm Assessment & Plan Assessment: Abdominal pain (Acute) Leukocytosis (Acute) Chest pain (Acute) 51 yo F with hx of Crohns disease and multiple abdominal surgeries with chronic pain and continuous narcotic use and dependency pw abd/chest pain # chest/abd pain: on further hx sounds more c/w chest pain and is 3rd visit for same complaints this week. CTA negative several days ago, no ischemic changes on ecg, trops neg after days of chest pain. Will continue to trend trops and obtain treadmill stress test in am. Will check esr/crp though does not sound c/ w either pericarditis or Crohns flare. # chronic pain with continuous narcotic use and dependency: making pain management more challenging given her tolerance. She has had hx of narcotic seeking behavior in the past but on review of PDMP data, it does appear she is getting all her narcotics from her pain mgmt doctor most recently. Would not prescribe additional pain meds at id without notification of her pain doctor. # crohn's disease: has been off of her crohn's meds for greater than 1 year, no c/o increased diarrhea etc. checking esr/crp as above. # bipolar d/p/depression: per patient this has been well controlled recently, will continue her home medications # dvt: provoked, off of AC # observation status, will need < 48 hours stay for eval/mgmt of above Care plan reviewed with ER doctor including plans for r/o CAD. Old records reviewed including PDMP prescription data and records in [facility], summarized as above.
[2017-05-15] MEDS ORDERED: HYDROmorphONE/DILAUDID 2 MG TAB PO PRN (02:43)
[2017-05-15] MEDS: PROMETHAZINE HCL 25 MG TAB PO PRN ×4 (03:07→20:06)
[2017-05-15] MEDS: oxyCODONE IR 5 MG TAB PO PRN ×5 (03:08→21:55)
[2017-05-15 03:20] LABS: COLOR PALE YELLOW; LEUKOCYTE ESTERASE,URINE NEGATIVE (NEGATIVE); NITRITE,URINE NEGATIVE (NEGATIVE)
[2017-05-15 05:33] LABS: % IMMATURE GRANULYOCYTES 1.3 % (0.0-1.1); ABSOLUTE IMMATURE GRANULOCYTES 0.15 10^3/uL (0.00-0.10); ADD DIFF? NO; ADD MORPH? NO; ADD SCAN? NO; ATYPICAL LYMPHOCYTE FLAG 20 (0-99); FRAGMENT RBC FLAG 0 (0-99); HEMATOCRIT 34.1 % (38.0-47.0); HEMOGLOBIN 10.4 g/dL (12.6-16.3); LEFT SHIFT FLG 10 (0-99); LIPEMIA HEMOLYSIS FLAG 80 (0-99); MEAN CELL HEMOGLOBIN 24.6 pg (27.9-34.1); MEAN CELL HEMOGLOBIN CONCENTR. 30.5 g/dL (32.4-36.7); MEAN CELL VOLUME 80.6 fL (81.5-99.8); MEAN PLATELET VOLUME 9.1 fL (8.7-11.7); PLATELET CLUMPS FLAG 10 (0-99); PLATELET COUNT 382 10^3/uL (150-400); RED BLOOD CELL COUNT 4.23 10^6/uL (4.18-5.33); RED CELL DISTRIBUTION WIDTH 18.6 % (11.5-15.2)
[2017-05-15] MEDS: HYDROmorphONE/DILAUDID 4 MG TAB PO SCH ×4 (05:40→20:06)
[2017-05-15 05:50] LABS: SEDIMENTATION RATE 9 MM/HR (0-30)
[2017-05-15 06:03] LABS: ANION GAP 5 mEq/L (8-16); C-REACTIVE PROTEIN < 5.0 mg/L (<10.0); CALCIUM 8.4 mg/dL (8.5-10.4); CARBON DIOXIDE 23 mEq/l (22-31); CHLORIDE 109 mEq/L (97-110); CREATININE 0.7 mg/dL (0.6-1.0); GLOMERULAR FILTRATION RATE > 60; GLUCOSE 74 mg/dL (70-100); POTASSIUM 4.5 mEq/L (3.5-5.2); SODIUM 137 mEq/L (134-144)
[2017-05-15 06:12] LABS: TROPONIN I < 0.012 ng/mL (0-0.034)
--- NOTE | 2017-05-15 08:45 | CPEKG ---
Heart Rate: 77 RR Interval: 779 P-R Interval: 160 QRSD Interval: 82 QT Interval: 364 QTC Interval: 412 P [place]: 75 QRS [place]: 28 T Wave [place]: 50 EKG Severity - NORMAL ECG - EKG Impression: SINUS RHYTHM Electronically Signed By: Phil Fuller 15-May-2017 17:24:00
[2017-05-15] MEDS: GABAPENTIN 300 MG CAP PO PRN ×3 (08:55→21:56)
[2017-05-15] MEDS: ENOXAPARIN 40 MG/0.4 ML SYR SC SCH (08:55)
[2017-05-15] MEDS ORDERED: NS 500 ML IV ONE (10:55)
--- NOTE | 2017-05-15 11:55 | HOSPPROG ---
Hospitalist Progress Note Assessment/Plan: Chest pain / epigastric pain - lipase nl, trops neg, ekg non-ischemic. abd CT without acute change. -check CXR -stress test today -add PPI, ?PUD, may warrant GI eval / EGD Chronic pain with chronic continuous opioid dependence - home dilaudid doses, prn oxycodone, avoid dose escalation and IV dilaudid given h/o drug seeking behavior per chart review Crohn's dz - s/p multiple abdominal surgeries, stable, no e/o crohn's flare Full code DVT PPLX - Lovenox Dispo - change to inpt for ongoing w/u, possible EGD, GI evaluation Subjective: Pt asks for IV dilaudid, states ongoing pain in mid chest / epigastrium and left chest. No fevers. No vomiting. C/O nausea. No changes in bowel habits. No blood in stool. Objective: Vital Signs Temp Pulse Resp BP Pulse Ox 36.7 C 100 16 89/52 L 95 05/15/17 10:35 05/15/17 10:35 05/15/17 10:35 05/15/17 10:35 05/15/17 10:35 Laboratory Results 05/15/17 05:25 05/15/17 05:25 05/14/17 05/15/17 05/16/17 05:59 05:59 05:59 Intake Total 1000 Balance 1000 - Physical Exam Constitutional: no apparent distress Eyes: PERRL Ears, Nose, Mouth, Throat: moist mucous membranes Cardiovascular: regular rate and rhythym Respiratory: no respiratory distress Gastrointestinal: normoactive bowel sounds, soft, non-tender abdomen Skin: warm Musculoskeletal: full muscle strength Neurologic: AAOx3 Psychiatric: interacting appropriately ICD10 Worksheet Patient Problems: Problems Problem Status Onset Chronic abdominal pain Acute Exacerbation of Crohn's disease Acute GI bleed Acute Hypovolemia with active loss of fluid Acute Hypotension Acute Abdominal pain Acute Leukocytosis Acute Chest pain Acute
[2017-05-15] MEDS ORDERED: PANTOPRAZOLE SODIUM 40 MG TAB PO SCH (12:00)
[2017-05-15] MEDS: ACETAMINOPHEN 325 MG TAB PO PRN ×2 (13:24→21:55)
[2017-05-15] MEDS: PANTOPRAZOLE SODIUM 40 MG in NS 100 ML IV SCH (13:25)
[2017-05-15] MEDS ORDERED: REGADENOSON 0.4 MG/5 ML SYR IVP ONE (14:19)
[2017-05-15] MEDS: risperiDONE 1 MG TAB PO SCH (20:05)
[2017-05-15] MEDS: MELATONIN 3 MG TAB PO PRN (21:56)
[2017-05-15] MEDS: NICOTINE POLACRILEX 2 MG GUM B PRN (22:59)
[2017-05-16] MEDS: oxyCODONE IR 5 MG TAB PO PRN ×4 (00:57→18:55)
[2017-05-16] MEDS: GABAPENTIN 300 MG CAP PO PRN ×3 (00:57→17:56)
[2017-05-16] MEDS: PROMETHAZINE HCL 25 MG TAB PO PRN ×3 (00:57→17:56)
[2017-05-16] MEDS: ACETAMINOPHEN 325 MG TAB PO PRN (02:33)
--- NOTE | 2017-05-16 02:50 | CPR ---
[f rep st] NONINVASIVE CARDIAC PROCEDURE REPORT DATE OF PROCEDURE: 05/15/2017 PROCEDURE PERFORMED: Lexiscan nuclear stress test. REASON FOR REQUEST: Chest pain, epigastric pain, family history of coronary artery disease, family history of mother having CA at 45 and cause of . EKG shows a regular sinus rhythm with a rate of 67. There were no ischemic changes noted. Resting blood pressure 92/51, resting heart rate 74, oxygen saturation 95. LEXISCAN PORTION: Lexiscan was injected rapidly, followed by saline flush. Cardiolite was then inj ected, followed by saline flush. Lexiscan injected at 1445:30. Peak blood pressure 100/58, peak he art rate 106, oxygen saturation 98%. She felt chest pressure and headache after the injection. RECOVERY: She spontaneously recovered with symptoms subsiding with caffeine. Recovery blood pressu re 98/60, recovery heart rate 90, oxygen saturation 98%. At this time, she currently is stable for nuclear imaging. /[id number]/MODL
[2017-05-16] MEDS: HYDROmorphONE/DILAUDID 4 MG TAB PO SCH ×4 (05:02→22:29)
[2017-05-16] MEDS: ENOXAPARIN 40 MG/0.4 ML SYR SC SCH (09:00)
[2017-05-16] MEDS: PANTOPRAZOLE SODIUM 40 MG in NS 100 ML IV SCH (13:18)
[2017-05-16] MEDS ORDERED: LR 1,000 ML IV ONE (16:10)
[2017-05-16] MEDS ORDERED: PROPOFOL/EMULSION 500 MG/50 ML BOTTLE IV ONE (16:50)
[2017-05-16] MEDS ORDERED: LIDOCAINE 2% 5 ML SDV ONE (16:50)
--- NOTE | 2017-05-16 17:05 | POSTOPPROG ---
Post Op Note Date of Operation: 05/16/17 Surgeon: Conor Mae Powerhouse Mechanic Helper: None Anesthesiologist: Dr. Martinez Anesthesia: Other (Specify) (IV General with Propofol.) Pre-op Diagnosis: Epigastric abdominal pain with N/V. Post-op Diagnosis: 1. Same 2. Proximal jejunal ulcer 3. Subtotal gastrectomy w [place] en Y Indication: Abdominal pain with N/V. Procedure: EGD Findings: Subtotal gastrectomy w [place]-en Y gastrojeunostomy w 2 cm prox jejunal ulcer Inf/Abcess present in the surg proc area at time of surgery?: No EBL: Minimal Total fluids administered: None Complications: None.
[2017-05-16] MEDS ORDERED: PROMETHAZINE HCL 25 MG/ML INJ IVP PRN (17:11)
[2017-05-16] MEDS ORDERED: fentaNYL 100 MCG/2 ML INJ IVP PRN (17:11)
[2017-05-16] MEDS ORDERED: NALOXONE HCL 0.4 MG/ML INJ IVP PRN (17:11)
--- NOTE | 2017-05-16 17:12 | POSTANESTH ---
Post Anesthetic Evaluation Cardiovascular Status: Normal, Stable Respiratory Status: Normal, Stable Level of Consciousness/Mental Status: Can Participate in Eval, Alert and Oriented Pain Control: Adequate, Prn Tx Ordered Nausea/Vomiting Control: Adequate, Prn Tx Ordered Complications Possibly Related to Anesthesia: None Noted
--- NOTE | 2017-05-16 17:13 | PDANEPAE ---
ANE History of Present Illness egd ANE Past Medical History - Pulmonary History Hx Oxygen in Use at Home: No Hx Sleep Apnea: No Sleep Apnea Screening Result - Last Documented: Negative - Endocrine History Hx Diabetes: No - Chronic Pain History Chronic Pain: Yes ANE Patient History - Allergies Allergies/Adverse Reactions: ondansetron HCl [From Zofran] Allergy (Severe, Verified 05/15/17 04:36) Hives codeine [Codeine] Allergy (Mild, Verified 05/14/17 19:14) Abdominal Cramping lorazepam [From Ativan] Allergy (Mild, Verified 05/14/17 19:14) metoclopramide HCl [From Reglan] Allergy (Mild, Verified 05/15/17 04:36) Anxiety morphine [Morphine] Allergy (Mild, Verified 05/14/17 19:14) Abdominal Cramping sumatriptan [From Imitrex] Allergy (Mild, Verified 05/14/17 19:14) sumatriptan succinate [From Imitrex] Allergy (Mild, Verified 05/14/17 19:14) zolmitriptan [From Zomig] Allergy (Mild, Verified 05/14/17 19:14) zolpidem tartrate [From Ambien] Allergy (Mild, Verified 05/14/17 19:14) - Home Medications Home Medications: Cholecalciferol Vit D3 [Vitamin D3 2000 units tab (OTC)] 2,000 units PO DAILY [Last Taken 08/20/16] Cyanocobalamin [Vitamin B12 1000MCG/ML (*)] 1,000 mcg IM Q30D 08/21/16 [Last Taken 04/14/17] Gabapentin 300 mg PO .UP TO 8X DAILY PRN 05/14/17 [Last Taken Unknown] HYDROmorphone HCL [Dilaudid] 1 tab PO QID 05/14/17 [Last Taken 05/14/17 16:00] Melatonin [Melatonin 3 MG (*)] 9 mg PO HS PRN 05/14/17 [Last Taken Unknown] Promethazine HCl [Phenergan 25mg (*)] 25 mg PO .5-6 X DAILY PRN 05/14/17 [Last Taken 05/14/17 16:00] risperiDONE [Risperdal] 3 mg PO HS 05/14/17 [Last Taken 05/14/17 17:00] - NPO status NPO Since - Liquids (Date): 05/16/17 NPO Since - Liquids (Time): 00:00 NPO Since - Solids (Date): 05/16/17 NPO Since - Solids (Time): 00:00 - Smoking Hx Smoking Status: Current every day smoker - Alcohol Use Alcohol Use: None ANE Labs/Vital Signs - Labs Result Diagrams: 05/15/17 05:25 05/15/17 05:25 - Vital Signs Blood Pressure: 106/60 Heart Rate: 69 Respiratory Rate: 16 O2 Sat (%): 92 Height: 157.48 cm Weight: 74.843 kg ANE Physical Exam - Airway Neck exam: FROM Mallampati Score: Class 2 Mouth exam: normal dental/mouth exam - Pulmonary Pulmonary: clear to auscultation - Cardiovascular Cardiovascular: regular rate and rhythym - ASA Status ASA Status: II ANE Anesthesia Plan Anesthesia Plan: GA with mask
--- NOTE | 2017-05-16 18:00 | HOSPPROG ---
Hospitalist Progress Note Assessment/Plan: Chest pain / epigastric pain - caused by proximal jejunal ulcer seen on EGD today. -BID Protonix Chronic pain with chronic continuous opioid dependence - home dilaudid doses, prn oxycodone, avoid dose escalation and IV dilaudid given h/o drug seeking behavior per chart review Crohn's dz - s/p multiple abdominal surgeries, stable, no e/o crohn's flare Full code DVT PPLX - Lovenox Dispo - cont inpt, likely home in am Subjective: Pt feels ok. Wants to eat dinner. pain controlled. no vomiting. no bloody stools or melanotic stools. Objective: Vital Signs Temp Pulse Resp BP Pulse Ox 36.4 C 69 16 121/79 H 91 L 05/16/17 17:47 05/16/17 17:13 05/16/17 17:47 05/16/17 17:47 05/16/17 17:52 05/15/17 05/16/17 05/17/17 05:59 05:59 05:59 Intake Total 2700 300 Output Total 0 Balance 2700 300 - Physical Exam Constitutional: no apparent distress Eyes: PERRL Ears, Nose, Mouth, Throat: moist mucous membranes Cardiovascular: regular rate and rhythym Respiratory: no respiratory distress Gastrointestinal: normoactive bowel sounds, soft, non-tender abdomen Skin: warm Musculoskeletal: full muscle strength Neurologic: AAOx3 Psychiatric: interacting appropriately ICD10 Worksheet Patient Problems: Problems Problem Status Onset Abdominal pain Acute Chest pain Acute Leukocytosis Acute Chronic abdominal pain Acute Exacerbation of Crohn's disease Acute GI bleed Acute Hypotension Acute Hypovolemia with active loss of fluid Acute
[2017-05-16] MEDS: MELATONIN 3 MG TAB PO PRN (22:28)
[2017-05-16] MEDS: risperiDONE 1 MG TAB PO SCH (22:29)
[2017-05-16] MEDS: PANTOPRAZOLE SODIUM 40 MG TAB PO SCH (22:29)
[2017-05-16] MEDS: NICOTINE POLACRILEX 2 MG GUM B PRN (22:53)
[2017-05-17] MEDS: PROMETHAZINE HCL 25 MG TAB PO PRN ×2 (02:00→08:10)
[2017-05-17] MEDS: oxyCODONE IR 5 MG TAB PO PRN ×2 (02:00→08:13)
[2017-05-17] MEDS: GABAPENTIN 300 MG CAP PO PRN (02:00)
--- NOTE | 2017-05-17 04:59 | GCON ---
[f rep st] CONSULTATION GI CONSULTATION DATE OF CONSULTATION: 05/16/2017 REASON FOR CONSULTATION: Abdominal pain. HISTORY OF PRESENT ILLNESS: The patient is a 51-year-old female with a longstanding history of Crohn's ileocolitis with greater than 30 abdominal surgeries over the last 15 years, who was seen by a private watchman at [facility] until 1 year ago when she quit seeing this doctor. She has been on no therapy for her Crohn disease thereafter. I was asked to see the patient by Dr. Hampton for evaluation of her a 2-week history of recurrent dull epigastric abdominal pain with radiation into the back as well as exacerbation of her chronic nausea and vomiting. The patient is on chronic narcotics for right lower extremity neuropathic pain. She has been on this for many years. She has seen a pain therapist for this in [place]. Her primary care doctor is in [place]. She has denied any blood in her stool or black, tarry stools. Her weight has been stable. MEDICATIONS: Prior to admission include vitamin D3 2000 units daily, vitamin B12 1000 units IM q.month, gabapentin 300 mg p.o. 8 times daily p.r.n. leg pain , melatonin 5 mg p.o. q.h.s., Phenergan 25 mg p.o. 5-6 times daily as needed for nausea, Risperdal 3 mg p.o. q.h.s. ALLERGIES: She has multiple drug allergies including codeine, lorazepam, metoclopramide, morphine, Zofran, Imitrex and Zomig. PAST MEDICAL HISTORY: Significant for Crohn disease with multiple abdominal surgeries including partial gastrectomy, bipolar affective disorder, depression , peripheral neuropathy with right foot and chronic right lower extremity pain, history of DVT, chronic narcotic dependency and migraines. PAST SURGICAL HISTORY: Significant for Radhika-Hayes tear clipped endoscopically in the past, total abdominal hysterectomy, partial gastrectomy, small bowel obstructions with laparotomies and adhesiolysis and partial small bowel resections, inguinal hernia repair, cholecystectomy, tonsillectomy, intussusception surgery. FAMILY HISTORY: Positive for atherosclerotic cardiovascular disease in her mother at age 40. SOCIAL HISTORY: She does smoke tobacco daily. She does not drink alcohol. She denies any illicit drug use. REVIEW OF SYSTEMS: Negative for comprehensive review of systems other than complaints of recurrent epigastric abdominal pain with radiation to the back, recurrent nausea, vomiting and chronic lower extremity pain. EXAMINATION: VITAL SIGNS: Today, this patient's temperature was 36.9, pulse was 69 and regular, blood pressure 120/60, respiratory rate was 16, O2 saturation 92% on 2 L. INTEGUMENT: Clear, no rash or ecchymosis. HEENT: Head atraumatic, normocephalic. Pupils equally round and reactive to light. EOM intact. Sclerae nonicteric. Nares patent. Mucous membranes moist. Dentition good. NECK: Supple. Trachea midline. PULMONARY: Lungs clear to percussion and auscultation. CARDIOVASCULAR: Regular rhythm and rate, normal S1, S2 without murmur. Peripheral pulses slightly decreased bilaterally. No pedal edema. GASTROINTESTINAL: Abdomen slightly distended, multiple abdominal surgical scars. No liver or spleen palpable. No tenderness noted. No fluid wave noted. EXTREMITIES: Without deformities. NEUROLOGIC: Patient was alert and oriented x3. No focal neurologic deficits. LABORATORIES: White count 11.41, hemoglobin 10.4, hematocrit 34.1, platelets 382,000, MCV 80.08, MCHC 24.6, sedimentation rate 9. Sodium 137, potassium 4.5 , chloride 109, CO2 23, anion gap 5, BUN 8, creatinine 0.7, glucose 74, calcium 8.4, troponin I less than 0.012. Total bilirubin 0.3, conjugated 0.3, unconjugated 0.0. AST 14, ALT 20, alkaline phosphatase 135, albumin 3.4, lipase 122. Urinalysis normal. CT scan of the abdomen revealed stable intra and extrahepatic biliary dilatation with removal of gallbladder. Previous postoperative changes with pete noted in the abdomen. IMPRESSION: 1. Epigastric abdominal pain with radiation to the back. Rule out peptic ulcer disease, doubt biliary disease with normal LFTs and minimally dilated common bile duct in patient with a remote history of cholecystectomy. 2. Chronic nausea and vomiting of unclear etiology. 3. Chronic pain on chronic narcotic therapy. 4. Peripheral neuropathy and neuropathic pain of the right lower extremity. 5. Chronic anemia of unclear etiology. RECOMMENDATIONS: 1. Esophagogastroduodenoscopy rule out peptic ulcer disease, will need to do this with propofol anesthesia due to the patient's chronic narcotic needs. 2. Iron studies. 3. Patient did have EGD and total colonoscopy in the recent past. Will obtain these records for review. /[id number]/MODL MTDD
--- NOTE | 2017-05-17 05:29 | GPN ---
[f rep st] PROCEDURE NOTE DATE OF PROCEDURE: 05/16/2017 PROCEDURE: Esophagogastroduodenoscopy. PREOPERATIVE DIAGNOSES: Epigastric abdominal pain, nausea, and vomiting. POSTOPERATIVE DIAGNOSES: 1. Epigastric abdominal pain, nausea, and vomiting. 2. 2 cm diameter proximal jejunal ulceration, in the setting of a subtotal gastrectomy with a Dieudonne- en-Y gastrojejunostomy. CLINICAL HISTORY/INDICATION: The patient is a 51-year-old female, who has a history of Crohn's, ile ocolitis, with multiple abdominal surgeries in the past, as well as a history of a cholecystectomy, and chronic pain medication for right lower extremity neuropathy. She has been on no medications fo r Crohn's ileocolitis for greater than 1 year. She is set up for EGD today to further assess her sy mptoms of epigastric abdominal pain, nausea, and vomiting. Abdominal CT scan did show cholecystecto my and mild dilation of the intrahepatic biliary tree consistent with removal of the gallbladder. PERMIT: Patient was informed indication for procedure. Risks and benefits of procedure were outlin ed by me. Informed consent was obtained. PREOPERATIVE MEDICATIONS: General anesthesia, per Dr. Martinez. PROCEDURE FINDINGS: GIF-160 video endoscope was inserted into the oropharynx and passed to the prox imal esophagus under direct visualization. The esophageal mucosa appeared normal. GE junction was located 40 cm from the incisors. There was a small hiatal hernia pouch. The scope was entered in t he stomach. There was a small gastric pouch remnant. Exit of the pouch was to a Dieudonne-en-Y gastroen terostomy. Scope was advanced into the jejunum approximately at 35 cm. There was a 1 cm diameter p roximal jejunal ulceration, without stigmata of bleed or luminal narrowing. The jejunum visualized distal to this site appeared normal. The scope was removed. The patient tolerated procedure well a nd was sent to recovery room in satisfactory condition. IMPRESSION: 1. Epigastric abdominal pain, with nausea and vomiting likely related to jejunal ulceration; could this be related to chronic nonsteroidal antiinflammatory drug use. 2. History of Crohn's ileocolitis, with multiple abdominal surgeries in the past-doubt this is an e tiology of the patient's abdominal pain, nausea, and vomiting. 3. Chronic narcotic use, due to neuropathic pain of the lower extremities. RECOMMENDATIONS: 1. Clear liquid diet, advance as tolerated. 2. Continue Protonix, albeit would switch to 40 mg p.o. b.i.d. 3. We will follow with you. /[id number]/MODL
[2017-05-17] MEDS: HYDROmorphONE/DILAUDID 4 MG TAB PO SCH ×2 (06:18→11:41)
[2017-05-17] MEDS: PANTOPRAZOLE SODIUM 40 MG TAB PO SCH (08:10)
[2017-05-17 08:33] VITALS: BP 90/54; PULSE 72; RESP 14; TEMP 97.9; O2SAT 90
--- NOTE | 2017-05-17 20:58 | GDS ---
[f rep st] DISCHARGE SUMMARY DISCHARGE DIAGNOSES: 1. Proximal jejunal ulcer. 2. Chronic pain with chronic continuous opioid dependence. 3. Crohn disease. 4. Status post gastric bypass surgery. CONSULTANTS: Conor Mea MD, gastroenterology. IMAGING, STUDIES AND PROCEDURES: 1. Abdomen CT, May 14, 2017, showed no acute changes. 2. Nuclear medicine myocardial perfusion scan, May 15, 2017, showed no evidence of myocardial isch emia. 3. Upper endoscopy performed by Dr. Conor Mae, May 16, 2017, showed a 2 cm proximal jejunal ulceration in the setting of a subtotal gastrectomy with a Dieudonne-en-Y gastrojejunostomy. HISTORY OF DETAILS: Please review the history and physical dated May 15, 2017. In brief, Ms Oneil peralta is a 51-year-old female, with a history of Crohn disease and multiple abdominal surgeries, as we ll as chronic pain, who presented to the emergency department with epigastric and chest pain. She w as admitted to hospital for further evaluation. HOSPITAL COURSE: The patient admitted to med/surg unit. She underwent a full cardiac workup which was negative for ischemia. She recently had a CTA that was negative for PE. A GI consult was obtai rajesh for upper endoscopy and did reveal a proximal jejunal ulcer. She was treated with twice daily Pr otonix will be discharged on this regimen for 2 months. She was instructed to follow up with her pr imary director of managed care if her symptoms are not improved after that treatment. At that point, she coul d warrant referral back to Gastroenterology. She was maintained on her usual outpatient opioid dose s. DISPOSITION: The patient was discharged home in stable condition. DISCHARGE MEDICATIONS: Please see [facility] for complete updated outpatient medication list. New me dications on discharge include Protonix 40 mg p.o. twice daily, #120, no refills. She will take all other medications as previously prescribed. FOLLOWUP: Patient will follow up with her primary care physician at the [facility]. /[id number]/MODL
== END 2017-05-17 12:37 | disposition home or self-care (01) | DRG 381 ==
LOC: F3E 22:03 → OBSVTOIN 05-15 17:20
PROVIDERS: ADMIT Internal Medicine; ATTEND Hospitalist
PROC: 0DJ08ZZ Inspection of Upper Intestinal Tract, Via Natural or Artificial Opening Endoscopic (ICD-10-PCS; principal; 2017-05-16 16:30)
DX: K28.9 Gastrojejunal ulcer, unspecified as acute or chronic, without hemorrhage or perforation (principal); K50.90 Crohn's disease, unspecified, without complications; F31.9 Bipolar disorder, unspecified; G89.29 Other chronic pain; G57.91 Unspecified mononeuropathy of right lower limb; Z86.718 Personal history of other venous thrombosis and embolism; F11.20 Opioid dependence, uncomplicated; G43.909 Migraine, unspecified, not intractable, without status migrainosus; F17.200 Nicotine dependence, unspecified, uncomplicated; Z98.0 Intestinal bypass and anastomosis status
CPT/HCPCS: 96374; A9500; G0378; J1170; J1650; J1885; J2550; J2704; J2785; Q9967